=== PATIENT | female | born 1965 ===

== ENCOUNTER 2017-03-15 15:53 | Emergency (ER) | payer SELFPAY ==
[2017-03-15] MEDS ORDERED: Sodium Chloride 0.9% 10 ML Syringe FLUSH PRN (15:54)
[2017-03-15] MEDS ORDERED: Sodium Chloride 0.9% 2.5 ML Syringe FLUSH PRN (15:54)
--- NOTE | 2017-03-15 15:58 | EDM.PDOC ---
ED HPI GENERAL MEDICAL PROBLEM - General Chief Complaint: Drug or Alcohol Abuse Stated Complaint: DRUG ABUSE Time Seen by Provider: 03/15/17 15:56 - History of Present Illness INITIAL COMMENTS - FREE TEXT/NARRATIVE: HISTORY AND PHYSICAL: History of present illness: Patient is 51-year-old female history of polysubstance abuse including heroin and cocaine he presents via and once after a presumptive heroin overdose in which they gave Narcan intranasally with good response patient upon arrival to awake alert in mixed to heroin and cocaine abuse including prior to arrival she has no other complaints and no other concerns. Review of systems: As per history of present illness and below otherwise all systems reviewed and negative. Past medical history: As per history of present illness and as reviewed below otherwise noncontributory. Surgical history: As per history of present illness and as reviewed below otherwise noncontributory. Social history: No reported history of drug or alcohol abuse. Family history: As per history of present illness and as reviewed below otherwise noncontributory. Physical exam: HEENT: Atraumatic, normocephalic, pupils reactive, negative for conjunctival pallor or scleral icterus, mucous membranes moist, throat clear, neck supple, nontender, trachea midline. Lungs: Clear to auscultation, breath sounds equal bilaterally, chest nontender. Heart: S1S2, regular, negative for clicks, rubs, or JVD. Abdomen: Soft, nondistended, nontender. Negative for masses or hepatosplenomegaly. Negative for costovertebral tenderness. Pelvis: Stable nontender. Genitourinary: Deferred. Rectal: Deferred. Extremities: Atraumatic, negative for cords or calf pain. Neurovascular unremarkable. Neuro: Awake, alert, oriented. Cranial nerves II through XII unremarkable. Cerebellum unremarkable. Motor and sensory unremarkable throughout. Exam nonfocal. Diagnostics: CBC CMP Accu-Chek EKG chest x-ray Therapeutics: IV O2 monitor Impression: #1 observation status post heroin overdose #2 polysubstance abuse Definitive disposition and diagnosis as appropriate pending reevaluation and review of above. - Related Data Allergies Allergy/AdvReac Type Severity Reaction Status Date / Time No Known Allergies Allergy Verified 03/15/17 15:56 Home Meds: Home Meds Pregabalin [Lyrica] 300 mg PO BID 03/15/17 [History] ED ROS GENERAL - Review of Systems Review Of Systems: ROS reveals no pertinent complaints other than HPI. ED EXAM, GENERAL - Physical Exam Exam: See Below (See dictation) Course - Vital Signs Last Recorded V/S: Last Vital Signs Temp 36.6 C 03/15/17 15:57 Pulse 98 03/15/17 15:57 Resp 18 03/15/17 15:57 BP 156/79 H 03/15/17 15:57 Pulse Ox 99 03/15/17 15:57 - Orders/Labs/Meds Orders: Active Orders 24 hr Category Date Time Status Cardiac Monitoring [RC] . DIRECTED Care 03/15/17 15:55 Active EKG Documentation Completion [RC] STAT Care 03/15/17 15:54 Active Oxygen Therapy, ED [RC] ASDIRECTED Care 03/15/17 15:54 Active Chest 1V Frontal [CR] Stat Exams 03/15/17 15:55 Ordered CBC WITH AUTO DIFF [HEME] Stat Lab 03/15/17 15:55 Ordered COMPREHENSIVE METABOLIC PN,CMP [CHEM] Stat Lab 03/15/17 15:55 Ordered DRUG SCREEN, URINE [URCHEM] Stat Lab 03/15/17 15:55 Uncollected HCG QUANTITATIVE,SERUM [CHEM] Stat Lab 03/15/17 15:55 Ordered TROPONIN I [CHEM] Stat Lab 03/15/17 15:55 Ordered UA W/O MICROSCOPIC [URIN] Stat Lab 03/15/17 15:55 Uncollected Sodium Chloride 0.9% [Saline Flush] Med 03/15/17 15:54 Active 10 ml FLUSH ASDIRECTED PRN Sodium Chloride 0.9% [Saline Flush] Med 03/15/17 15:54 Active 2.5 ml FLUSH ASDIRECTED PRN Saline Lock Insert [OM.PC] Stat Oth 03/15/17 15:54 Ordered Medication Orders Sodium Chloride (Saline Flush) 10 ml FLUSH ASDIRECTED PRN PRN Reason: Keep Vein Open Sodium Chloride (Saline Flush) 2.5 ml FLUSH ASDIRECTED PRN PRN Reason: Keep Vein Open Meds: Medications Generic Name Dose Route Start Last Admin Trade Name Freq PRN Reason Stop Dose Admin Sodium Chloride 10 ml 03/15/17 15:54 Saline Flush FLUSH ASDIRECTED PRN Keep Vein Open Sodium Chloride 2.5 ml 03/15/17 15:54 Saline Flush FLUSH ASDIRECTED PRN Keep Vein Open Departure - Departure Time of Disposition: 15:58 Disposition: Home, Self-Care 01 Condition: Good Clinical Impression: Heroin overdose, Polysubstance abuse - Discharge Information Forms: ED Department Discharge Additional Instructions: The following information is given to patients seen in the emergency department who are being discharged to home. This information is to outline your options for follow-up care. We provide all patients seen in our emergency department with a follow-up referral. The need for follow-up, as well as the timing and circumstances, are variable depending upon the specifics of your emergency department visit. If you don't have a primary care physician on staff, we will provide you with a referral. We always advise you to contact your personal physician following an emergency department visit to inform them of the circumstance of the visit and for follow-up with them and/or the need for any referrals to a consulting specialist. The emergency department will also refer you to a specialist when appropriate. This referral assures that you have the opportunity for followup care with a specialist. All of these measure are taken in an effort to provide you with optimal care, which includes your followup. Under all circumstances we always encourage you to contact your private physician who remains a resource for coordinating your care. When calling for followup care, please make the office aware that this follow-up is from your recent emergency room visit. If for any reason you are refused follow-up, please contact the [facility] emergency department at and asked to speak to the emergency department charge nurse. [facility] [address] [place] [id number] Follow-up primary medical doctor nor clinic above is discussed. Using drugs return as needed as discussed
[2017-03-15 16:45] LABS: CHLORIDE,CL 109 mmol/L (98-110); SODIUM,NA 143 mmol/L (136-146)
== END 2017-03-15 16:30 | disposition home or self-care (01) ==
LOC: MW.ED 15:53
DX: T40.1X1A Poisoning by heroin, accidental (unintentional), initial encounter (principal); F19.10 Other psychoactive substance abuse, uncomplicated
CPT/HCPCS: 36415; 80053; 84484; 84702; 85025; 93005; 99282; 99284-25